=== PATIENT | male | born 1945 | race Caucasian/White ===

== ENCOUNTER → 2016-10-22 | Day surgery (SDC) | payer OTHER ==
[2016-10-14 14:43] VITALS: Ht 180.3 cm; Wt 112.7 kg
[~2016-10-22] VITALS: Ht 180.3 cm; Wt 112.7 kg
[~2016-10-22] MED LIST: ASPI-461 PO; CLOTCRE33 TOP; DORZ1SOL6 OPB; LATA0.009 OPB; LIDOCAINE HCL 2% 2 ML VIAL (20MG/ML) ONE; LISI-461 PO; METF1TAB53 PO; MIDAZOLAM HCL 1 MG/ML 2ML VIAL ONE; MULT-506 PO; ONDANSETRON INJ 2 MG/ML 2 ML VIAL ONE; PROPOFOL IV EMULSION 10 MG/ML 20 ML VIAL IV ONE; SIMV40TA2 PO; SODIUM CHLORIDE 0.9% 500ML 500 ML IV ONE
[2016-10-22 08:10] VITALS: TEMP 36
--- NOTE | 2016-10-22 08:47 | Endo History and Physical ---
History & Physical Date of Service: October 22, 2016. Chief Complaint: screening Referring Physician: Germaine Gaiatn PA-C History of Present Illness 71 yo CM who presents for screening colonoscopy. Past Medical History Diabetes, High Cholesterol, Hypertension Past Surgical History Hx Cardiac Surgery: No Hx Internal Defibrillator: No Hx Pacemaker: No Hx Abdominal Surgery: No Hx of Implantable Prosthesis: No Hx Post-Op Nausea and Vomiting: No Hx Cancer Surgery: No Hx Thoracic Surgery: No Hx Orthopedic: Yes (LEFT INDEX FINGER AMPUTATION (INJURY)) Hx Urinary Tract Surgery: No Family History Colon CA Social History Smoking Status: Current Some Day Smoker Hx Substance Use: No Hx Alcohol Use: Yes (RARELY) Allergies Coded Allergies: No Known Allergies (Verified , 10/22/16) Current Medications Reported Home Medications Medications Dose Route/Sig Max Daily Dose Days Date Category Multivitamin (Multivitamins) Tab 1 Tab PO QAM 10/14/16 Reported Cosopt Oph (Dorzolamide Hcl-Timolol Maleat) 1 Romy Romy 1 Drops OPB BID 10/14/16 Reported Zocor (Simvastatin) 40 Mg Tab 40 Mg PO HS 10/14/16 Reported Lotrisone (Clotrimazole W/ Betamethasone) 1 Cre Cre 1 Appln TOP BID PRN 10/14/16 Reported Glucophage Ext Rel (Metformin Hcl) 1,000 Mg Tab 1,000 Mg PO BID 10/14/16 Reported Xalatan 0.005% Oph Romy (Latanoprost) 0.005 % Romy 1 Drop OPB QAM 07/22/14 Reported Aspirin 81 Mg Tab 81 Mg PO QAM 07/22/14 Reported Zestril (Lisinopril) 10 Mg Tab 10 Mg PO QAM 07/22/14 Reported Vital Signs Weight (Kilograms): 112.73 Height (Feet): 5 Height (Inches): 11 Date Time Temp Pulse Resp B/P Pulse Ox O2 Delivery O2 Flow Rate FiO2 10/22/16 08:10 36 56 20 128/76 95 Room Air Physical Exam General Appearance: WD/WN, no apparent distress Respiratory/Chest: Auscultation: breath sounds normal Cardiovascular: Heart Auscultation: RRR Abdomen: Bowel Sounds: normal Inspection & Palpation: soft, non-distended, no tenderness, guarding & rebound Assessment and Plan Assessment: 71 yo CM who presents for screening colonoscopy. Plan: Proceed with colonoscopy.
--- NOTE | 2016-10-22 09:13 | GI REPORT ---
Procedure Date: 10/22/2016 8:11 AM Procedure: Colonoscopy Indications: Screening for colorectal malignant neoplasm Medicines: Monitored Anesthesia Care Complications: No immediate complications. Estimated Blood Loss: Estimated blood loss: none. Procedure: Pre-Anesthesia Assessment: - Prior to the procedure, a History and Physical was performed, and patient medications and allergies were reviewed. The patient's tolerance of previous anesthesia was also reviewed. The risks and benefits of the procedure and the sedation options and risks were discussed with the patient. All questions were answered, and informed consent was obtained. Prior Anticoagulants: The patient has taken aspirin, last dose was 5 days prior to procedure. ASA Grade Assessment: III - A patient with severe systemic disease. After reviewing the risks and benefits, the patient was deemed in satisfactory condition to undergo the procedure. After I obtained informed consent, the scope was passed under direct vision. Throughout the procedure, the patient's blood pressure, pulse, and oxygen saturations were monitored continuously. The scope was introduced through the anus and advanced to the terminal ileum. The colonoscopy was performed without difficulty. The patient tolerated the procedure well. The quality of the bowel preparation was good. The terminal ileum, ileocecal valve, appendiceal orifice, and rectum were photographed. Findings: Two sessile polyps were found in the transverse colon and in the cecum. The polyps were 5 to 8 mm in size. These polyps were removed with a hot snare. Resection and retrieval were complete. Multiple small-mouthed diverticula were found in the sigmoid colon. Non-bleeding internal hemorrhoids were found during retroflexion. The hemorrhoids were small. Impression: - Two 5 to 8 mm polyps in the transverse colon and in the cecum, removed with a hot snare. Resected and retrieved. - Diverticulosis in the sigmoid colon. - Non-bleeding internal hemorrhoids. Recommendation: - Resume previous diet. - Continue present medications. - Repeat colonoscopy for surveillance based on pathology results. - Return to primary care physician as previously scheduled. Juan Maxwell, DO 10/22/2016 9:11:55 AM This report has been signed electronically. Note Initiated On: 10/22/2016 8:11 AM I attest to the content of the Intraoperative Record and orders documented therein, exceptions below
--- NOTE | 2016-10-22 09:14 | Discharge Instructions ---
Endoscopy Patient Instructions Date / Procedure(s) Performed October 22, 2016. Colonoscopy Allergy Information Coded Allergies: No Known Allergies (Verified , 10/22/16) Discharge Date / Findings October 22, 2016. Colon polyps Diverticulosis Internal hemorrhoids Medication Instructions Stopped Medication(s): Last dose MVI and ASA Last dose Metformin OK to resume all medications today as prescribed. Reported Home Medications Medications Dose Route/Sig Max Daily Dose Days Date Category Multivitamin (Multivitamins) Tab 1 Tab PO QAM 10/14/16 Reported Cosopt Oph (Dorzolamide Hcl-Timolol Maleat) 1 Romy Romy 1 Drops OPB BID 10/14/16 Reported Zocor (Simvastatin) 40 Mg Tab 40 Mg PO HS 10/14/16 Reported Lotrisone (Clotrimazole W/ Betamethasone) 1 Cre Cre 1 Appln TOP BID PRN 10/14/16 Reported Glucophage Ext Rel (Metformin Hcl) 1,000 Mg Tab 1,000 Mg PO BID 10/14/16 Reported Xalatan 0.005% Oph Romy (Latanoprost) 0.005 % Romy 1 Drop OPB QAM 07/22/14 Reported Aspirin 81 Mg Tab 81 Mg PO QAM 07/22/14 Reported Zestril (Lisinopril) 10 Mg Tab 10 Mg PO QAM 07/22/14 Reported Provider Instructions Activity Restrictions - No exercising or heavy lifting for 24 hours. - Do not drink alcohol the day of the procedure. - Do not drive a car or operate machinery until the day after the procedure. - Do not make any important decisions or sign important papers in 24 hours after the procedure. Following Day: - Return to full activity which may include returning to work/school. Diet Start your diet with liquids and light foods (jello, soup, juice, toast). Then eat your usual diet if not nauseated. Treatment For Common After Affects For mild abdominal pain, bloating, or excessive gas: - Rest - Eat lightly - Lie on right side Follow-Up Information Follow-up with Germaine Gaitan PA-C as scheduled Anesthesia Information What You Should Know You have had a procedure that required some medicine to reduce anxiety and discomfort. This treatment is called moderate sedation. After receiving the treatment, you may be sleepy, but you will be able to breathe on your own. The effects of the treatment may last for several hours. Follow these instructions along with Activity/Diet recommendations noted above: * Do NOT do anything where dizziness or clumsiness would be dangerous. * Rest quietly at home today, then you can be up and about tomorrow. * Have a responsible person stay with you the rest of today. * You may have had an I.V. today. If so, you may take the dressing off later today. Recommendations Call your doctor if: * Trouble breathing * Continuous vomiting for more than 24 hours * Temperature above 101 degrees * Severe abdominal pain or bloating * Pain not relieved by pain medicine ordered * There is increased drainage or redness from any incision * A large amount of rectal bleeding greater than 2-3 tablespoons. (If you had a polyp/s removed or have hemorrhoids, a small amount of blood - from the rectum is to be expected.) * You have any unanswered questions or concerns. IN THE EVENT OF A SERIOUS EMERGENCY, GO TO THE NEAREST EMERGENCY ROOM Your discharge instructions were prepared by provider Juan Maxwell. Patient Instructions Signature Page Diaz Fisher Patient (or Guardian) Signature/Date: I have read and understand the instructions given to me by my caregivers. Caregiver/RN/Doctor Signature/Date: The above-named patient and/or guardian has received patient instructions on this date. + Original Patient Signature Page (only) stays with chart. Please make copy for patient.
[2016-10-22 10:19] VITALS: BP 108/64; PULSE 63; O2SAT 97
--- NOTE | 2016-10-22 10:30 | Anesthesiology Progress Note ---
Anesthesia Post Op Note Date & Time October 22, 2016 at 10:30 Vital Signs Pain Intensity: 0 Vital Signs Past 12 Hours Date Time Temp Pulse Resp B/P Pulse Ox O2 Delivery O2 Flow Rate FiO2 10/22/16 10:03 57 20 102/64 95 Room Air 10/22/16 09:51 59 20 103/59 93 Room Air 10/22/16 09:42 57 106/59 10/22/16 09:40 59 83/53 10/22/16 09:35 52 88/48 10/22/16 09:30 51 90/48 10/22/16 09:23 51 20 91/51 96 Room Air 10/22/16 09:19 57 20 90/50 95 Room Air 10/22/16 09:13 53 20 84/43 98 Room Air 10/22/16 08:10 36 56 20 128/76 95 Room Air Notes Mental Status: alert / awake / arousable, participated in evaluation Pt Amnestic to Procedure: Yes Nausea / Vomiting: adequately controlled Pain: adequately controlled Airway Patency, RR, SpO2: stable & adequate BP & HR: stable & adequate Hydration State: stable & adequate Anesthetic Complications: no major complications apparent
== END | disposition home or self-care (01) ==
LOC: C.GI 07:50
PROVIDERS: ATTEND Internal Medicine
DX: Z12.11 Encounter for screening for malignant neoplasm of colon (principal); D12.3 Benign neoplasm of transverse colon; D12.0 Benign neoplasm of cecum; K57.30 Diverticulosis of large intestine without perforation or abscess without bleeding; K64.8 Other hemorrhoids; E11.9 Type 2 diabetes mellitus without complications; E78.00 Pure hypercholesterolemia, unspecified; I10 Essential (primary) hypertension; Z89.022 Acquired absence of left finger(s); F17.200 Nicotine dependence, unspecified, uncomplicated; Z79.82 Long term (current) use of aspirin; K21.9 Gastro-esophageal reflux disease without esophagitis; M19.90 Unspecified osteoarthritis, unspecified site; E66.9 Obesity, unspecified; Z79.84 Long term (current) use of oral hypoglycemic drugs